=== PATIENT | male | born 1995 ===

== ENCOUNTER 2016-10-23 11:26 | Emergency (ER) | payer SELFPAY ==
--- NOTE | 2016-10-23 11:54 | ERRECORD ---
[facility] EMERGENCY RECORD HPI LACERATION (11:47 JLOY) CHIEF COMPLAINT: Patient presents for evaluation of laceration to forearm, on the left, 0-1.5cm in length, cutaneous, No foreign body, Not grossly contaminated, Pt with partial thickness laceration of the left forearm by a sharp piece of metal at work. No bleeding. HISTORIAN: History provided by patient. MECHANISM OF INJURY: Known mechanism, Mechanism of injury: Cut or punctured by. LOCATION: Symptoms are localized. QUALITY: Laceration quality straight. TIME COURSE: Sudden onset of symptoms, There has been no change in the patient's symptoms over time. ASSOCIATED WITH: No associated bleeding, No associated numbness, No associated significant tissue destruction. EXACERBATED BY: Patient's condition exacerbated by nothing. RELIEVED BY: Patient's condition relieved by nothing. TETANUS: Tetanus status up to date. ROS (11:48 JLOY) SKIN: laceration. NEUROLOGIC: Historian denies paralysis, denies paresthesias, denies sensory changes. PAST MEDICAL HISTORY MEDICAL HISTORY: No past medical history, Tetanus immunization up to date. (11:31 EPIE) MALE SURGICAL HISTORY: Surgical history of orthopedic surgery, right ankle. (11:31 EPIE) PSYCHIATRIC HISTORY: No previous psychiatric history. (11:31 EPIE) SOCIAL HISTORY: Patient drinks socially, every week, Patient denies drug use, Patient has no smoking history. (11:31 EPIE) NOTES: Nursing records reviewed, Agree with nursing records. (11:48 JLOY) KNOWN ALLERGIES Penicillins CURRENT MEDICATIONS (11:30 EPIE) None VITAL SIGNS (11:29 EPIE) VITAL SIGNS: BP: 128/60, Pulse: 92, Resp: 18 (Non-Labored), Temp: 97.0 (Oral), Pain: 2, O2 sat: 96 on Room Air, Time: 10/23/2016 11:29. PHYSICAL EXAM (11:48 JLOY) CONSTITUTIONAL: Vital signs reviewed, Patient appears non toxic, Patient alert and oriented to person, place and time. UPPER EXTREMITY: Upper extremity exam included findings of inspection abnormal, laceration(s) present, as &a-1R&a+25V*p+0X*t2581S*c202B*c15G*c2P*p-0X&a-25V&a+1R Name: Galen Wu : 1995 M21 MedRec: [id number] AcctNum: [id number] Prepared: SatOct 23, 2016 12:09 by Interface Page 1 of 2 pMD [facility] EMERGENCY RECORD per HPI, Radial pulse normal, no cyanosis, no clubbing, no edema. PSYCHIATRIC: Normal affect. PROBLEM LIST No recorded problems DIAGNOSIS (11:46 ROXANNE) FINAL: PRIMARY: UNSPECIFIED OPN WND UNS UP ARM INIT. PRESCRIPTION No recorded prescriptions DISPOSITION PATIENT: Disposition Type: Discharge, Disposition: *Discharge Home. (11:46 ROXANNE) Patient left the department. (12:04 KAREN) Hamlin: KAREN=ISAC Au, Sarah OLIVEIRA=MD Primitivo, Aman &a-1R&a+25V*p+0X*u1940M*c202B*c15G*c2P*p-0X&a-25V&a+1R Name: Galen Wu : 1995 1 MedRec: [id number] AcctNum: [id number] Prepared: SatOct 23, 2016 12:09 by Interface Page 2 of 2 pMD MTDD
--- NOTE | 2016-10-23 11:58 | PICIS ---
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 (SatOct 23, 2016 11:30 EPIE) PATIENT: NAME: Galen Wu, AGE: 21, GENDER: male, : Sat1995, TIME OF GREET: SatOct 23, 2016 11:26, PREFERRED LANGUAGE: [place], ETHNICITY: Not or , ECODE BILLING MAP: [facility], Zip Code: [address], KG WEIGHT: [phone], PHONE: , , , PERSON ID: [id number], PCP: none. (SatOct 23, 2016 11:30 EPIE) COMPLAINT: LAC TO LT ARM. (SatOct 23, 2016 11:30 EPIE) ADMISSION: URGENCY: [address] [employer], ADMISSION SOURCE: Home, TRANSPORT: CAR, BED: TRIAGE. (SatOct 23, 2016 11:30 EPIE) TRIAGE SCREENING: Patient denies suicidal ideation, Patient denies presence of domestic violence. (11:31 EPIE) TREATMENTS IN PROGRESS: Treatments given Prehospital: none. (11:31 EPIE) PROVIDERS: TRIAGE NURSE: Sarah Au RN. (SatOct 23, 2016 11:30 EPIE) VITAL SIGNS: BP 128/60, Pulse 92, Resp 18, (Non-Labored), Temp 97.0, (Oral), Pain 2, O2 Sat 96, on Room Air, Time 10/23/2016 11:29. (11:29 EPIE) KNOWN ALLERGIES Penicillins CURRENT MEDICATIONS (11:30 EPIE) None VITAL SIGNS (11:29 EPIE) VITAL SIGNS: BP: 128/60, Pulse: 92, Resp: 18 (Non-Labored), Temp: 97.0 (Oral), Pain: 2, O2 sat: 96 on Room Air, Time: 10/23/2016 11:29. 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 PAIN: burning pain, left forearm, Onset of pain 10/23/2016, on a scale 0-10 patient rates pain as 2. SKIN: Skin assessment findings include skin warm, Skin dry, Skin normal in color, Inspection findings include laceration, to left forearm, length (cm) 1.5, bleeding controlled. NURSING PROCEDURE: DISCHARGE NOTE (11:59 EPIE) DISCHARGE: Patient discharged to work, ambulating without &a-1R&a+25V*p+0X*x6135K*c202B*c15G*c2P*p-0X&a-25V&a+1R Name: Galen Wu : 1995 M21 MedRec: [id number] AcctNum: [id number] Prepared: SatOct 23, 2016 12:15 by Interface Page 1 of 3 pMD [facility] EMERGENCY RECORD assistance, friend driving, accompanied by friend, Summary of Care printed/ provided, Discharge instructions given to patient, Simple or moderate discharge teaching performed, Above person(s) verbalized understanding of discharge instructions and follow-up care. BELONGINGS: Belongings and valuables with patient upon arrival to the Emergency Department include:, Belongings and valuables with patient at time of discharge include:, Belongings remain with patient, Valuables remain with patient. NURSING PROCEDURE: WOUND CARE PATIENT IDENTIFIER: Patient actively involved in identification process, Patient's identity verified by patient stating name, Patient's identity verified by hospital ID bracelet. (11:39 EPIE) WOUND CARE: Wound site: left forearm, Cause of wound: car parts, Wound irrigated with 250 mL of normal saline, by Sarah CHAU, Wound cleansed with Betadine, by Sarah RN, Wound repaired with steri-strips, by Sarah CHAU, using 1 pack of steri-strips, Last tetanus shot received less than 5 years ago. (11:39 EPIE) FOLLOW-UP: After procedure, simple dressing applied, using kerlex dressing, bandaid. (11:52 EPIE) HPI LACERATION (11:47 JLOY) CHIEF COMPLAINT: Patient presents for evaluation of laceration to forearm, on the left, 0-1.5cm in length, cutaneous, No foreign body, Not grossly contaminated, Pt with partial thickness laceration of the left forearm by a sharp piece of metal at work. No bleeding. HISTORIAN: History provided by patient. MECHANISM OF INJURY: Known mechanism, Mechanism of injury: Cut or punctured by. LOCATION: Symptoms are localized. QUALITY: Laceration quality straight. TIME COURSE: Sudden onset of symptoms, There has been no change in the patient's symptoms over time. ASSOCIATED WITH: No associated bleeding, No associated numbness, No associated significant tissue destruction. EXACERBATED BY: Patient's condition exacerbated by nothing. RELIEVED BY: Patient's condition relieved by nothing. TETANUS: Tetanus status up to date. ROS (11:48 JLOY) SKIN: laceration. NEUROLOGIC: Historian denies paralysis, denies paresthesias, denies sensory changes. PAST MEDICAL HISTORY MEDICAL HISTORY: No past medical history, Tetanus immunization up to date. (11:31 EPIE) MALE SURGICAL HISTORY: Surgical history of orthopedic surgery, right ankle. (11:31 EPIE) PSYCHIATRIC HISTORY: No previous psychiatric history. (11:31 &a-1R&a+25V*p+0X*q7001T*c202B*c15G*c2P*p-0X&a-25V&a+1R Name: Galen Wu : 1995 M21 MedRec: [id number] AcctNum: [id number] Prepared: SatOct 23, 2016 12:15 by Interface Page 2 of 3 pMD [facility] EMERGENCY RECORD EPIE) SOCIAL HISTORY: Patient drinks socially, every week, Patient denies drug use, Patient has no smoking history. (11:31 EPIE) NOTES: Nursing records reviewed, Agree with nursing records. (11:48 JLOY) PHYSICAL EXAM (11:48 JLOY) CONSTITUTIONAL: Vital signs reviewed, Patient appears non toxic, Patient alert and oriented to person, place and time. UPPER EXTREMITY: Upper extremity exam included findings of inspection abnormal, laceration(s) present, as per HPI, Radial pulse normal, no cyanosis, no clubbing, no edema. PSYCHIATRIC: Normal affect. EVENTS TRANSFER: Triage to Emergency Triage. (SatOct 23, 2016 11:30 EPIE) Emergency Triage to Emergency Room -03. (11:30 EPIE) Removed from Emergency Emergency Room -03. (12:04 EPIE) PROBLEM LIST No recorded problems DIAGNOSIS (11:46 JLOY) FINAL: PRIMARY: UNSPECIFIED OPN WND UNS UP ARM INIT. DISPOSITION PATIENT: Disposition Type: Discharge, Disposition: *Discharge Home. (11:46 JLOY) Patient left the department. (12:04 EPIE) INSTRUCTION (11:46 JLOY) DISCHARGE: EXTREMITY LACERATION. FOLLOWUP: Follow up with Primary Care Physician in 7-10 days. PRESCRIPTION No recorded prescriptions IMAGING *DISCHARGE INSTRUCTIONS RECEIPT: Image captured from scanner. (12:03 EPIE) *SUPPLY CHARGE SHEET: Image captured from scanner. (12:04 EPIE) ADMIN (11:48 JLOY) DIGITAL SIGNATURE: MD Primitivo, Aman. Hamlin: KAREN=ISAC Au, Sarah JLOY=MD Langford Joshua &a-1R&a+25V*p+0X*k0404U*c202B*c15G*c2P*p-0X&a-25V&a+1R Name: Galen Wu : 1995 M21 MedRec: [id number] AcctNum: [id number] Prepared: Jacquelin Oct 23, 2016 12:15 by Interface Page 3 of 3 pMD MTDD
== END 2016-10-23 11:59 | disposition home or self-care (01) ==
LOC: NAV ERS 11:26
DX: S51.812A Laceration without foreign body of left forearm, initial encounter (principal); W45.8XXA Other foreign body or object entering through skin, initial encounter; Y99.0 Civilian activity done for income or pay; Z88.0 Allergy status to penicillin
CPT/HCPCS: 99282